=== PATIENT | female | born 1940 | race Caucasian/White ===

== ENCOUNTER 2025-06-19 15:30 | Inpatient (IN) | payer OTHER ==
[2025-06-19] MEDS ORDERED: ACETAMINOPHEN INJECTION 100 ML ONE (16:12)
[2025-06-19] MEDS: ACETAMINOPHEN 1000 MG/100 ML BAG IVPB ONE (16:18)
[2025-06-19 16:27] LABS: BG HCT 26.0 % (32.4-45.2); VENOUS BASE EXCESS -3.3 mmol/L (-2-2); VENOUS O2 SATURATION 90.8 % (70-80); VENOUS PCO2 25.7 mmHg (38-52); VENOUS PH 7.49 (7.310-7.410)
[2025-06-19 16:29] LABS: ABSOLUTE IMMATURE GRANULOCYTES 0.05 x10^3/uL (0.0-0.031); BASOPHILS # 0.02 x10^3/uL (0.01-0.08); EOSINOPHIL % 0.0 % (0.7-5.8); EOSINOPHILS # 0.00 x10^3/uL (0.04-0.36); MCHC 32.5 g/dl (32.2-35.5); MEAN CELL VOLUME 83.0 fl (79.4-94.8); MEAN PLT VOLUME 10.8 fl (9.4-12.3); MONOCYTE # 0.43 x10^3/uL (0.24-0.86); MONOCYTE % 5.2 % (4.7-12.5); RDW 16.2 % (12.5-17.0)
[2025-06-19 16:36] LABS: INR 1.16 (0.83-1.09); PROTHROMBIN TIME (PATIENT) 12.6 SEC (9.7-13.0)
[2025-06-19 16:38] LABS: ACTIVATED PTT 33.3 SECONDS (25.2-36.5)
[2025-06-19] MEDS ORDERED: PIPERACILLIN/TAZOB 4.5 GM 4.5 GM/100 ML BAG IVPB ONE (16:42)
[2025-06-19 16:46] LABS: GLUCOSE,RANDOM 142.0 mg/dL (74-106); TOT PROT 7.8 g/dl (6.4-8.2)
[2025-06-19 16:47] LABS: CO2 17.0 mmol/L (21-32)
[2025-06-19 16:49] LABS: ALK PHOS 79.0 U/L (40-150)
[2025-06-19 16:52] LABS: CREATININE 1.22 mg/dL (0.55-1.3); SGOT/AST 34.0 U/L (5-34); SGPT/ALT 14.0 U/L (0-55)
[2025-06-19 17:13] LABS: HCV DIAGNOSTIC IN-HOUSE W/RFLX NON-REACTIVE (NONREACTIVE); HIV INTERPRETATION NEGATIVE (NEGATIVE)
[2025-06-19] MEDS ORDERED: VANCOMYCIN 1 GM PREMIX (F) 1 GM/200 ML BAG ONE (17:22)
[2025-06-19] MEDS: PIPERACILLIN/TAZOB 4.5 GM 4.5 GM in DEXTROSE 5%-WATER 100 ML IVPB ONE (17:25)
[2025-06-19] MEDS: VANCOMYCIN 1,000 MG in DEXTROSE 5%-WATER - 250 ML IVPB ONE (18:00)
[2025-06-19] MEDS: SODIUM CHLORIDE 0.9% 500 ML INFUS.BAG IV ONE (19:04)
[2025-06-19 19:19] LABS: EPI CELLS 4 /uL (0-25.1); HYALINE CASTS 1 /uL (0-3.1); URINE APPEARANCE CLEAR; URINE BACTERIA 26 /uL (0-1359); URINE BILIRUBIN NEGATIVE (NEGATIVE); URINE COLOR YELLOW; URINE GLUCOSE (UA) NEGATIVE (NEGATIVE); URINE KETONE NEGATIVE (NEGATIVE); URINE LEUK ESTERASE NEGATIVE (NEGATIVE); URINE NITRITE NEGATIVE (NEGATIVE); URINE PROTEIN 1+ (NEGATIVE); URINE UROBILINOGEN 0.2 mg/dL (0.2-1.0)
[2025-06-19 19:56] LABS: URINE RBC 80.2 /uL (0-23.9)
[2025-06-19 19:57] LABS: URINE CRYSTALS FEW /hpf; URINE WBC 811.1 /uL (0-25.8); YEAST FEW (NEGATIVE)
[2025-06-19] MEDS ORDERED: SODIUM BICARBONATE 8.4% 50 MEQ/50 ML DISP.SYRIN ONE (20:02)
[2025-06-19] MEDS: SODIUM BICARBONATE 8.4% 50 MEQ/50 ML DISP.SYRIN IVPUSH ONE (20:14)
[2025-06-19] MEDS: CHOLECALCIFEROL (VIT D3) 5000 UNITS (125 MCG) CAP PO SCH (20:24)
[2025-06-19] MEDS: D5-1/2NS+20 MEQ KCL - 20 MEQ/1,000 ML INFUS.BAG IV SCH (20:43)
[2025-06-19] MEDS ORDERED: PANTOPRAZOLE 40 MG TABLET PO ONE (21:08)
[2025-06-19] MEDS ORDERED: HEPARIN NA (PORCINE) 5,000 UNITS/ML 1ML VIAL ONE (21:08)
[2025-06-19] MEDS: PANTOPRAZOLE 40 MG TABLET PO SCH (21:18)
[2025-06-19 21:33] LABS: IRON SERUM 15.0 ug/dL (50-175)
[2025-06-19] MEDS: HEPARIN NA (PORCINE) 5,000 UNITS/ML 1ML VIAL SQ SCH (22:11)
[2025-06-19] MEDS: ACETAMINOPHEN 1000 MG/100 ML BAG IVPB PRN (23:00)
[2025-06-19] MEDS: IRON SUCROSE INJECTION 300 MG in SODIUM CHLORIDE 235 ML IVPB ONE (23:28)
[2025-06-19] MEDS: ASCORBIC ACID 500 MG TABLET (FP) PO SCH (23:29)
[2025-06-19] MEDS: DOCUSATE SODIUM 100 MG CAPSULE (FP) PO SCH (23:29)
[2025-06-20] MEDS: D5-1/2NS+20 MEQ KCL - 20 MEQ/1,000 ML INFUS.BAG IV SCH (03:48)
[2025-06-20 08:01] LABS: ABSOLUTE IMMATURE GRANULOCYTES 0.03 x10^3/uL (0.0-0.031); BASOPHILS # 0.03 x10^3/uL (0.01-0.08); EOSINOPHIL % 1.1 % (0.7-5.8); EOSINOPHILS # 0.09 x10^3/uL (0.04-0.36); MCHC 30.6 g/dl (32.2-35.5); MEAN CELL VOLUME 84.9 fl (79.4-94.8); MEAN PLT VOLUME 10.2 fl (9.4-12.3); MONOCYTE # 0.70 x10^3/uL (0.24-0.86); MONOCYTE % 8.9 % (4.7-12.5); RDW 16.3 % (12.5-17.0)
[2025-06-20 08:23] LABS: GLUCOSE,RANDOM 122.0 mg/dL (74-106)
[2025-06-20 08:24] LABS: CO2 21.0 mmol/L (21-32)
[2025-06-20 08:29] LABS: CREATININE 1.27 mg/dL (0.55-1.3)
[2025-06-20] MEDS: AMINO ACIDS/PROTEIN HYDROLYS 30 ML LIQUID.PKT PO SCH (10:20)
[2025-06-20] MEDS: PIPERACILLIN/TAZOB 3.375 GM 3.375 GM in DEXTROSE 5%-WATER - 50 ML IVPB SCH (12:00)
[2025-06-20] MEDS: IRON SUCROSE INJECTION 300 MG in SODIUM CHLORIDE 235 ML IVPB ONE (14:34)
[2025-06-20] MEDS: ALBUTEROL SO4 2.5/IPRATROPIUM 0.5 INH SOL 3 ML VIAL.NEB. NEB PRN (23:24)
[2025-06-21 08:08] LABS: ABSOLUTE IMMATURE GRANULOCYTES 0.06 x10^3/uL (0.0-0.031); BASOPHILS # 0.04 x10^3/uL (0.01-0.08); EOSINOPHIL % 2.4 % (0.7-5.8); EOSINOPHILS # 0.23 x10^3/uL (0.04-0.36); MCHC 31.9 g/dl (32.2-35.5); MEAN CELL VOLUME 84.9 fl (79.4-94.8); MEAN PLT VOLUME 10.8 fl (9.4-12.3); MONOCYTE # 0.66 x10^3/uL (0.24-0.86); MONOCYTE % 6.8 % (4.7-12.5); RDW 15.2 % (12.5-17.0)
[2025-06-21 08:44] LABS: GLUCOSE,RANDOM 96.0 mg/dL (74-106)
[2025-06-21 08:45] LABS: CO2 20.0 mmol/L (21-32)
[2025-06-21] MEDS: D5-1/2NS+20 MEQ KCL - 20 MEQ/1,000 ML INFUS.BAG IV SCH (09:37)
[2025-06-21 10:52] LABS: CREATININE 1.23 mg/dL (0.55-1.3)
[2025-06-21] MEDS: guaiFENesin 600 MG TABLET.ER (FP) PO SCH (14:00)
[2025-06-21] MEDS: ALBUTEROL SO4 2.5/IPRATROPIUM 0.5 INH SOL 3 ML VIAL.NEB. NEB SCH (20:29)
[2025-06-22 10:04] LABS: ABSOLUTE IMMATURE GRANULOCYTES 0.05 x10^3/uL (0.0-0.031); BASOPHILS # 0.04 x10^3/uL (0.01-0.08); EOSINOPHIL % 2.2 % (0.7-5.8); EOSINOPHILS # 0.16 x10^3/uL (0.04-0.36); MCHC 32.2 g/dl (32.2-35.5); MEAN CELL VOLUME 84.8 fl (79.4-94.8); MEAN PLT VOLUME 10.9 fl (9.4-12.3); MONOCYTE # 0.29 x10^3/uL (0.24-0.86); MONOCYTE % 4.0 % (4.7-12.5); RDW 15.6 % (12.5-17.0)
[2025-06-22 10:23] LABS: GLUCOSE,RANDOM 132.0 mg/dL (74-106)
[2025-06-22 10:25] LABS: CO2 19.0 mmol/L (21-32)
[2025-06-22 10:29] LABS: CREATININE 1.13 mg/dL (0.55-1.3)
[2025-06-22] MEDS: DOCUSATE NA 100 MG/10 ML UNIT-DOSE CUPS PO SCH (14:56)
[2025-06-22] MEDS: guaiFENesin 200 MG/10 ML 10 ML UNIT-DOSE CUPS PO SCH (14:57)
[2025-06-22] MEDS: D5-1/2NS+20 MEQ KCL - 20 MEQ/1,000 ML INFUS.BAG IV SCH (17:30)
[2025-06-22] MEDS: ALBUTEROL SO4 2.5/IPRATROPIUM 0.5 INH SOL 3 ML VIAL.NEB. NEB PRN (18:00)
[2025-06-23 09:33] LABS: ABSOLUTE IMMATURE GRANULOCYTES 0.05 x10^3/uL (0.0-0.031); BASOPHILS # 0.03 x10^3/uL (0.01-0.08); EOSINOPHIL % 2.1 % (0.7-5.8); EOSINOPHILS # 0.12 x10^3/uL (0.04-0.36); MCHC 31.2 g/dl (32.2-35.5); MEAN CELL VOLUME 87.0 fl (79.4-94.8); MEAN PLT VOLUME 10.8 fl (9.4-12.3); MONOCYTE # 0.20 x10^3/uL (0.24-0.86); MONOCYTE % 3.6 % (4.7-12.5); RDW 15.6 % (12.5-17.0)
[2025-06-23 10:46] LABS: GLUCOSE,RANDOM 100.0 mg/dL (74-106)
[2025-06-23 10:47] LABS: CO2 20.0 mmol/L (21-32)
[2025-06-23 10:51] LABS: CREATININE 1.03 mg/dL (0.55-1.3)
[2025-06-23] MEDS: IRON SUCROSE INJECTION 300 MG in SODIUM CHLORIDE 235 ML IVPB ONE (16:42)
[2025-06-23] MEDS ORDERED: LOSARTAN POTASSIUM 50 MG TABLET PO SCH (18:00)
[2025-06-23] MEDS: hydrALAZINE HCL 50 MG TABLET (FP) PO ONE (18:45)
[2025-06-23] MEDS: METOPROLOL TARTRATE 5 MG/5 ML VIAL IVPUSH ONE (19:06)
[2025-06-23] MEDS: HEPARIN NA (PORCINE) 5,000 UNITS/ML 1ML VIAL SQ SCH (21:47)
[2025-06-23] MEDS: hydrALAZINE HCL 25 MG TABLET (FP) PO SCH (21:47)
[2025-06-23] MEDS ORDERED: METOPROLOL TARTRATE 5 MG/5 ML VIAL IVPUSH PRN (22:49)
[2025-06-24 09:18] LABS: ABSOLUTE IMMATURE GRANULOCYTES 0.09 x10^3/uL (0.0-0.031); BASOPHILS # 0.03 x10^3/uL (0.01-0.08); EOSINOPHIL % 2.4 % (0.7-5.8); EOSINOPHILS # 0.23 x10^3/uL (0.04-0.36); MCHC 30.6 g/dl (32.2-35.5); MEAN CELL VOLUME 88.6 fl (79.4-94.8); MEAN PLT VOLUME 10.1 fl (9.4-12.3); MONOCYTE # 0.39 x10^3/uL (0.24-0.86); MONOCYTE % 4.1 % (4.7-12.5); RDW 15.8 % (12.5-17.0)
[2025-06-24 10:04] LABS: GLUCOSE,RANDOM 91.0 mg/dL (74-106)
[2025-06-24 10:05] LABS: CO2 21.0 mmol/L (21-32)
[2025-06-24] MEDS: hydrALAZINE HCL 50 MG TABLET (FP) PO SCH (10:08)
[2025-06-24 10:10] LABS: CREATININE 0.98 mg/dL (0.55-1.3)
[2025-06-24] MEDS ORDERED: D5-1/4NS+20 MEQ KCL - 20 MEQ/1,000 ML INFUS.BAG IV SCH (10:45)
[2025-06-24] MEDS: D5-1/2NS+20 MEQ KCL - 20 MEQ/1,000 ML INFUS.BAG IV SCH (14:25)
[2025-06-24] MEDS: D5-1/4NS+20 MEQ KCL - 20 MEQ/1,000 ML INFUS.BAG IV SCH (14:26)
[2025-06-24] MEDS ORDERED: DEXTROSE 5%-WATER - 1,000 ML IV SCH (14:30)
[2025-06-24] MEDS: DEXTROSE 5%-WATER - 1,000 ML IV SCH (14:53)
[2025-06-25] MEDS: DEXTROSE 5%-WATER - 1,000 ML IV SCH ×2 (02:19→13:10)
[2025-06-25 08:54] LABS: ABSOLUTE IMMATURE GRANULOCYTES 0.05 x10^3/uL (0.0-0.031); BASOPHILS # 0.04 x10^3/uL (0.01-0.08); EOSINOPHIL % 2.5 % (0.7-5.8); EOSINOPHILS # 0.20 x10^3/uL (0.04-0.36); MCHC 30.3 g/dl (32.2-35.5); MEAN CELL VOLUME 88.7 fl (79.4-94.8); MEAN PLT VOLUME 10.6 fl (9.4-12.3); MONOCYTE # 0.34 x10^3/uL (0.24-0.86); MONOCYTE % 4.2 % (4.7-12.5); RDW 16.1 % (12.5-17.0)
[2025-06-25 11:40] LABS: GLUCOSE,RANDOM 99.0 mg/dL (74-106)
[2025-06-25 11:41] LABS: CO2 21.0 mmol/L (21-32)
[2025-06-25 11:45] LABS: CREATININE 1.02 mg/dL (0.55-1.3)
[2025-06-25] MEDS ORDERED: AMINO ACIDS 4.25%/D5W 1,000 ML IV SCH (12:00)
[2025-06-25] MEDS: AMINO ACIDS/PROTEIN HYDROLYS 30 ML LIQUID.PKT PO SCH (13:10)
[2025-06-25] MEDS: AMINO ACIDS 4.25%/D5W 1,000 ML IV SCH (13:11)
[2025-06-25] MEDS: POTASSIUM CHLORIDE 30 MEQ in AMINO ACIDS 4.25%/D5W 1,000 ML IV SCH ×3 (14:07→15:46)
[2025-06-26 07:41] LABS: ABSOLUTE IMMATURE GRANULOCYTES 0.04 x10^3/uL (0.0-0.031); BASOPHILS # 0.01 x10^3/uL (0.01-0.08); EOSINOPHIL % 2.5 % (0.7-5.8); EOSINOPHILS # 0.15 x10^3/uL (0.04-0.36); MCHC 30.8 g/dl (32.2-35.5); MEAN CELL VOLUME 88.8 fl (79.4-94.8); MEAN PLT VOLUME 9.1 fl (9.4-12.3); MONOCYTE # 0.22 x10^3/uL (0.24-0.86); MONOCYTE % 3.7 % (4.7-12.5); RDW 15.9 % (12.5-17.0)
[2025-06-26 08:11] LABS: GLUCOSE,RANDOM 114.0 mg/dL (74-106)
[2025-06-26 08:12] LABS: TOT PROT 5.6 g/dl (6.4-8.2)
[2025-06-26 08:13] LABS: CO2 20.0 mmol/L (21-32)
[2025-06-26 08:17] LABS: SGOT/AST 29.0 U/L (5-34); SGPT/ALT 10.0 U/L (0-55)
[2025-06-26 08:18] LABS: CREATININE 0.93 mg/dL (0.55-1.3)
[2025-06-26 09:28] LABS: ALK PHOS 62.0 U/L (40-150)
[2025-06-26] MEDS: POTASSIUM CHLORIDE 20 MEQ in AMINO ACIDS 4.25%/D5W 1,000 ML IV SCH (10:01)
[2025-06-26] MEDS: MAGNESIUM SULF 50% (8.12 MEQ/2 ML-1 GM VIAL) IVPB ONE ×2 (10:10→14:01)
[2025-06-26] MEDS: IRON SUCROSE INJECTION 300 MG in SODIUM CHLORIDE 235 ML IVPB ONE (11:08)
[2025-06-26] MEDS: KCL 10 MEQ IVPB 10 MEQ/100 ML INFUS.BAG IVPB SCH (12:50)
[2025-06-26] MEDS: POTASSIUM PHOSPHATE 30 MM in SODIUM CHLORIDE 500 ML IVPB ONE (16:42)
[2025-06-26] MEDS ORDERED: DEXTROSE 5%-WATER - 50 ML IVPB ONE (17:23)
[2025-06-27 08:31] LABS: ABSOLUTE IMMATURE GRANULOCYTES 0.06 x10^3/uL (0.0-0.031); BASOPHILS # 0.03 x10^3/uL (0.01-0.08); EOSINOPHIL % 2.5 % (0.7-5.8); EOSINOPHILS # 0.16 x10^3/uL (0.04-0.36); MCHC 31.2 g/dl (32.2-35.5); MEAN CELL VOLUME 88.9 fl (79.4-94.8); MEAN PLT VOLUME 10.1 fl (9.4-12.3); MONOCYTE # 0.26 x10^3/uL (0.24-0.86); MONOCYTE % 4.1 % (4.7-12.5); RDW 16.4 % (12.5-17.0)
[2025-06-27 09:02] LABS: GLUCOSE,RANDOM 97.0 mg/dL (74-106)
[2025-06-27 09:04] LABS: CO2 19.0 mmol/L (21-32)
[2025-06-27 09:08] LABS: CREATININE 0.88 mg/dL (0.55-1.3)
[2025-06-27] MEDS: POTASSIUM CHLORIDE 20 MEQ in AMINO ACIDS 4.25%/D5W 1,000 ML IV SCH ×2 (17:07→22:00)
[2025-06-27] MEDS: EPOETIN ALFA-EPBX 20,000 UNIT/ML VIAL SQ ONE (17:07)
[2025-06-28] MEDS: POTASSIUM CHLORIDE 20 MEQ in AMINO ACIDS 4.25%/D5W 1,000 ML IV SCH ×2 (08:26→10:04)
[2025-06-28 09:55] LABS: ABSOLUTE IMMATURE GRANULOCYTES 0.07 x10^3/uL (0.0-0.031); BASOPHILS # 0.03 x10^3/uL (0.01-0.08); EOSINOPHIL % 2.3 % (0.7-5.8); EOSINOPHILS # 0.16 x10^3/uL (0.04-0.36); MCHC 30.0 g/dl (32.2-35.5); MEAN CELL VOLUME 88.0 fl (79.4-94.8); MEAN PLT VOLUME 10.7 fl (9.4-12.3); MONOCYTE # 0.30 x10^3/uL (0.24-0.86); MONOCYTE % 4.3 % (4.7-12.5); RDW 16.8 % (12.5-17.0)
[2025-06-28 10:15] LABS: GLUCOSE,RANDOM 102.0 mg/dL (74-106)
[2025-06-28 10:16] LABS: CO2 19.0 mmol/L (21-32)
[2025-06-28 10:21] LABS: CREATININE 0.87 mg/dL (0.55-1.3)
[2025-06-28] MEDS: POTASSIUM PHOSPHATE 15 MM in SODIUM CHLORIDE 250 ML IVPB ONE (17:45)
[2025-06-29 08:43] LABS: ABSOLUTE IMMATURE GRANULOCYTES 0.29 x10^3/uL (0.0-0.031); BASOPHILS # 0.04 x10^3/uL (0.01-0.08); EOSINOPHIL % 2.0 % (0.7-5.8); EOSINOPHILS # 0.15 x10^3/uL (0.04-0.36); MCHC 31.3 g/dl (32.2-35.5); MEAN CELL VOLUME 88.6 fl (79.4-94.8); MEAN PLT VOLUME 10.4 fl (9.4-12.3); MONOCYTE # 0.38 x10^3/uL (0.24-0.86); MONOCYTE % 5.0 % (4.7-12.5); RDW 17.1 % (12.5-17.0)
[2025-06-29 10:00] LABS: GLUCOSE,RANDOM 111.0 mg/dL (74-106)
[2025-06-29 10:01] LABS: CO2 18.0 mmol/L (21-32)
[2025-06-29 10:05] LABS: CREATININE 0.89 mg/dL (0.55-1.3)
[2025-06-29] MEDS ORDERED: morphine CARPU-JECT 2 MG/1 ML DISP.SYRIN IVPUSH PRN (10:34)
[2025-06-29] MEDS: methylPREDNISolone NA SUCC 40 MG/1 ML VIAL IVPUSH SCH (11:40)
[2025-06-29] MEDS ORDERED: DEXTROSE 50%-WATER 25 GM/50 ML DISP.SYRIN IVPUSH PRN (13:23)
[2025-06-29] MEDS: FUROSEMIDE 40 MG/4 ML INJECTABLE VIAL IVPUSH ONE (13:28)
[2025-06-29] MEDS: PANTOPRAZOLE SODIUM 40 MG VIAL IVPUSH SCH (13:28)
[2025-06-29 23:03] VITALS: BMI 17.2
[2025-06-29 23:26] LABS: N-TERMINAL BNP 6202.9 pg/mL (0-299.9)
[2025-06-30 08:11] LABS: ABSOLUTE IMMATURE GRANULOCYTES 0.14 x10^3/uL (0.0-0.031); BASOPHILS # 0.04 x10^3/uL (0.01-0.08); EOSINOPHIL % 0.4 % (0.7-5.8); EOSINOPHILS # 0.03 x10^3/uL (0.04-0.36); MCHC 31.9 g/dl (32.2-35.5); MEAN CELL VOLUME 88.0 fl (79.4-94.8); MEAN PLT VOLUME 10.5 fl (9.4-12.3); MONOCYTE # 0.56 x10^3/uL (0.24-0.86); MONOCYTE % 8.1 % (4.7-12.5); RDW 17.7 % (12.5-17.0)
[2025-06-30 08:34] LABS: GLUCOSE,RANDOM 94.0 mg/dL (74-106)
[2025-06-30 08:35] LABS: CO2 20.0 mmol/L (21-32)
[2025-06-30 08:39] LABS: CREATININE 1.07 mg/dL (0.55-1.3)
[2025-06-30] MEDS: methylPREDNISolone NA SUCC 40 MG/1 ML VIAL IVPUSH SCH (10:52)
[2025-07-01] MEDS: PIPERACILLIN/TAZOB 3.375 GM 3.375 GM in DEXTROSE 5%-WATER - 50 ML IVPB SCH (04:04)
[2025-07-01 09:00] LABS: ABSOLUTE IMMATURE GRANULOCYTES 0.17 x10^3/uL (0.0-0.031); BASOPHILS # 0.06 x10^3/uL (0.01-0.08); EOSINOPHIL % 0.6 % (0.7-5.8); EOSINOPHILS # 0.05 x10^3/uL (0.04-0.36); MCHC 32.0 g/dl (32.2-35.5); MEAN CELL VOLUME 89.9 fl (79.4-94.8); MEAN PLT VOLUME 10.6 fl (9.4-12.3); MONOCYTE # 0.75 x10^3/uL (0.24-0.86); MONOCYTE % 8.5 % (4.7-12.5); RDW 18.1 % (12.5-17.0)
[2025-07-01 09:40] LABS: GLUCOSE,RANDOM 80.0 mg/dL (74-106)
[2025-07-01 09:42] LABS: CO2 22.0 mmol/L (21-32)
[2025-07-01 09:45] LABS: CREATININE 1.18 mg/dL (0.55-1.3)
[2025-07-02 08:27] LABS: ABSOLUTE IMMATURE GRANULOCYTES 0.21 x10^3/uL (0.0-0.031); BASOPHILS # 0.06 x10^3/uL (0.01-0.08); EOSINOPHIL % 0.7 % (0.7-5.8); EOSINOPHILS # 0.07 x10^3/uL (0.04-0.36); MCHC 32.7 g/dl (32.2-35.5); MEAN CELL VOLUME 92.8 fl (79.4-94.8); MEAN PLT VOLUME 10.7 fl (9.4-12.3); MONOCYTE # 0.74 x10^3/uL (0.24-0.86); MONOCYTE % 7.8 % (4.7-12.5); RDW 18.8 % (12.5-17.0)
[2025-07-02 09:24] LABS: GLUCOSE,RANDOM 83.0 mg/dL (74-106); TOT PROT 7.2 g/dl (6.4-8.2)
[2025-07-02 09:25] LABS: CO2 23.0 mmol/L (21-32)
[2025-07-02 09:27] LABS: ALK PHOS 88.0 U/L (40-150)
[2025-07-02 09:30] LABS: CREATININE 1.05 mg/dL (0.55-1.3); SGOT/AST 27.0 U/L (5-34); SGPT/ALT 9.0 U/L (0-55)
[2025-07-03 08:48] LABS: GLUCOSE,RANDOM 94.0 mg/dL (74-106)
[2025-07-03 08:49] LABS: CO2 24.0 mmol/L (21-32)
[2025-07-03 08:53] LABS: CREATININE 0.97 mg/dL (0.55-1.3)
[2025-07-03 08:56] LABS: ABSOLUTE IMMATURE GRANULOCYTES 0.16 x10^3/uL (0.0-0.031); BASOPHILS # 0.07 x10^3/uL (0.01-0.08); EOSINOPHIL % 1.5 % (0.7-5.8); EOSINOPHILS # 0.17 x10^3/uL (0.04-0.36); MCHC 30.4 g/dl (32.2-35.5); MEAN CELL VOLUME 94.4 fl (79.4-94.8); MEAN PLT VOLUME 10.4 fl (9.4-12.3); MONOCYTE # 0.74 x10^3/uL (0.24-0.86); MONOCYTE % 6.5 % (4.7-12.5); RDW 19.3 % (12.5-17.0)
[2025-07-04 08:37] VITALS: RESP 17
[2025-07-04 09:00] LABS: ABSOLUTE IMMATURE GRANULOCYTES 0.14 x10^3/uL (0.0-0.031); BASOPHILS # 0.07 x10^3/uL (0.01-0.08); EOSINOPHIL % 3.6 % (0.7-5.8); EOSINOPHILS # 0.34 x10^3/uL (0.04-0.36); MCHC 30.6 g/dl (32.2-35.5); MEAN CELL VOLUME 92.5 fl (79.4-94.8); MEAN PLT VOLUME 10.3 fl (9.4-12.3); MONOCYTE # 0.40 x10^3/uL (0.24-0.86); MONOCYTE % 4.3 % (4.7-12.5); RDW 19.9 % (12.5-17.0)
[2025-07-04 09:23] LABS: GLUCOSE,RANDOM 107.0 mg/dL (74-106)
[2025-07-04 09:25] LABS: CO2 25.0 mmol/L (21-32)
[2025-07-04 09:29] LABS: CREATININE 1.11 mg/dL (0.55-1.3)
[2025-07-04] MEDS ORDERED: morphine CARPU-JECT 2 MG/1 ML DISP.SYRIN IVPUSH PRN (10:01)
[2025-07-04] MEDS ORDERED: KCL 10 MEQ IVPB 10 MEQ/100 ML INFUS.BAG IVPB ONE ×2 (10:27→12:46)
[2025-07-04] MEDS: KCL 10 MEQ IVPB 10 MEQ/100 ML INFUS.BAG IVPB SCH (10:30)
[2025-07-04] MEDS: DEXTROSE 5%-WATER - 1,000 ML IV SCH (10:32)
[2025-07-04 14:50] VITALS: BP 150/75; PULSE 70; TEMP 97.2
== END 2025-07-04 18:16 | disposition hospice, inpatient (51) | DRG 193 ==
LOC: JER 15:30 → JERBED 19:47 → J6W TELE 22:24
PROVIDERS: ADMIT Internal Medicine; ATTEND Internal Medicine
DX: J18.9 Pneumonia, unspecified organism (principal); E43 Unspecified severe protein-calorie malnutrition; J96.01 Acute respiratory failure with hypoxia; R53.2 Functional quadriplegia; Z68.1 Body mass index [BMI] 19.9 or less, adult; I50.32 Chronic diastolic (congestive) heart failure; J44.0 Chronic obstructive pulmonary disease with (acute) lower respiratory infection; J44.1 Chronic obstructive pulmonary disease with (acute) exacerbation; R78.81 Bacteremia; F03.90 Unspecified dementia, unspecified severity, without behavioral disturbance, psychotic disturbance, mood disturbance, and anxiety; I11.0 Hypertensive heart disease with heart failure; R16.1 Splenomegaly, not elsewhere classified; E86.0 Dehydration; E87.6 Hypokalemia; K86.89 Other specified diseases of pancreas; R91.8 Other nonspecific abnormal finding of lung field
CPT/HCPCS: 36415; 36430; 70450-TC; 71045-TC-FY; 71275-TC; 72125-TC; 72170-TC-FY; 80048; 80053; 81003; 82550; 82728; 82803; 82962; 83540; 83550; 83605; 83735; 83880; 84100; 84484; 85025; 85610; 85730; 86480; 86803; 86850; 86900; 86901; 86922; 87040; 87086; 87305; 87389; 87637-QW; 87899; 93005; 93010; 93306-TC; 93308; 94010; 94640; 97116-GP; 97162-GP; 99285-25; J1756; P9038; P9058; Q9967